=== PATIENT | female | born 1990 | race African-American/Black ===

== ENCOUNTER 2018-04-02 03:21 | Emergency (ER) | payer MEDICAID ==
[~2018-04-02] VITALS: Ht 165.1 cm; Wt 59.0 kg
[2018-04-02 03:25] VITALS: BP 130/92
[2018-04-02] MEDS ORDERED: IBUPROFEN600 MG ORAL (03:38)
--- NOTE | 2018-04-02 03:38 | Emergency Room Report ---
History of Present Illness General Chief Complaint: General Complaint Source: Patient Present Illness HPI Is a 27-year-old female with no past medical history. She called [address] with chief complaint of bilateral ankle and foot pain. Onset for last several days. She says she been walking a lot. No trauma. No fever chills. Was told that her swelling is because his sodium is high. Denies any other complaint. Pain is 7 out of 10. No radiation. Allergies: Coded Allergies: CEPHALEXIN (Verified Allergy, Severe, 01/07/15) Patient History Past Medical History: see triage record, old chart reviewed Past Surgical History: none Pertinent Family History: none Social History: Denies: smoking Now: No Immunizations: other Reviewed Nursing Documentation: PMH: Agreed; PSxH: Agreed Nursing Documentation-PMH Past Medical History: No Stated History Review of Systems Eye: Denies: eye pain, blurred vision ENT: Denies: ear pain, nose congestion, throat swelling Respiratory: Denies: cough, shortness of breath Cardiovascular: Denies: chest pain, palpitations Gastrointestinal: Denies: abdominal pain, diarrhea, nausea, vomiting Musculoskeletal: Reports: joint pain; Denies: back pain Skin: Denies: rash Neurological: Denies: headache, numbness Endocrine: Denies: increased thirst, increased urine Hematologic/Lymphatic: Denies: easy bruising All Other Systems: negative except mentioned in HPI Physical Exam Vital Signs Date Time Temp Pulse Resp B/P (MAP) Pulse Ox O2 Delivery O2 Flow Rate FiO2 04/02/18 03:17 98.2 87 16 130/92 98 Room Air 98.2 vitals angelo Sp02 EP Interpretation: reviewed, normal General Appearance: well appearing, no apparent distress, alert Head: normocephalic, atraumatic Eyes: bilateral eye PERRL, bilateral eye EOMI ENT: hearing grossly normal, normal pharynx Neck: full range of motion, supple, no meningismus Respiratory: chest non-tender, lungs clear, normal breath sounds Cardiovascular #1: regular rate, rhythm, no murmur Gastrointestinal: normal bowel sounds, non tender, no mass, no organomegaly, no bruit, non-distended Musculoskeletal: back normal, gait/station normal, normal range of motion, other - This trace edema to the lateral aspect of both ankle. No pitting edema. Pulses normal. Minimal pain. Neurologic: alert, oriented x3 Psychiatric: mood/affect normal Skin: warm/dry Medical Decision Making Diagnostic Impression: Primary Impression: Bilateral ankle pain Qualified Codes: M25.571 - Pain in right ankle and joints of right foot; M25.572 - Pain in left ankle and joints of left foot ER Course Patient with bilateral ankle pain. I suspect this is secondary to being on her feet. No evidence of DVT or trauma. No evidence of septic joint. She is walking without any difficulty. I see no need for x-rays or ultrasound. Last Vital Signs Date Time Temp Pulse Resp B/P (MAP) Pulse Ox O2 Delivery O2 Flow Rate FiO2 04/02/18 03:25 98.2 16 130/92 98 Room Air 98.2 04/02/18 03:17 87 Status: unchanged Disposition: HOME, SELF-CARE Condition: Stable Scripts Ibuprofen* (MOTRIN*) 600 Mg Tablet 600 MG ORAL THREE TIMES A DAY, #30 TAB 0 Refills Prov: CONCHIS ABDI M.D. 04/02/18 Additional Instructions: Rest. Elevate your feet. Return if symptom worsen. Follow-up with your doctor in 7 days. CONCHIS ABDI M.D. Apr 02, 2018 03:38
[2018-04-02 03:54] VITALS: BP 0/0
== END 2018-04-02 03:54 | disposition home or self-care (01) ==
LOC: EDBD 03:21 → EMR 03:38
DX: M25.572 Pain in left ankle and joints of left foot (principal); M25.571 Pain in right ankle and joints of right foot
CPT/HCPCS: 99284

== ENCOUNTER 2018-04-12 01:35 | Emergency (ER) | payer MEDICAID ==
[~2018-04-12] VITALS: Ht 165.1 cm; Wt 63.5 kg
[~2018-04-12 01:35] MED LIST: IBUPROFEN600 MG ORAL
[2018-04-12] MEDS ORDERED: NKM (01:42)
[2018-04-12 01:43] VITALS: BP 130/88
[2018-04-12] MEDS ORDERED: IBUPROFEN600 MG ORAL (01:47)
--- NOTE | 2018-04-12 01:47 | Emergency Room Report ---
History of Present Illness General Chief Complaint: Neck Pain Source: Patient Present Illness HPI Is a 27-year-old female with no past mental history. She presents with chief complaint of neck pain. She said his been ongoing for weeks. I saw her about 10 days ago when she did not mention this. She has discharge paperwork's in her bag which she would not let me see. Pain is 8 out of 10. Worse with movement. Denies any trauma. No fever chills but no nausea no vomiting. Nothing made it better. Allergies: Coded Allergies: CEPHALEXIN (Verified Allergy, Severe, 01/07/15) Patient History Past Medical History: see triage record, old chart reviewed Past Surgical History: none Pertinent Family History: none Social History: Denies: smoking Last Menstrual Period: Mar Now: No Immunizations: other Reviewed Nursing Documentation: PMH: Agreed; PSxH: Agreed Nursing Documentation-PMH Past Medical History: No Stated History Review of Systems Eye: Denies: eye pain, blurred vision ENT: Denies: ear pain, nose congestion, throat swelling Respiratory: Denies: cough, shortness of breath Cardiovascular: Denies: chest pain, palpitations Gastrointestinal: Denies: abdominal pain, diarrhea, nausea, vomiting Musculoskeletal: Denies: back pain, joint pain Skin: Denies: rash Neurological: Denies: headache, numbness Endocrine: Denies: increased thirst, increased urine Hematologic/Lymphatic: Denies: easy bruising All Other Systems: negative except mentioned in HPI Physical Exam Vital Signs Date Time Temp Pulse Resp B/P (MAP) Pulse Ox O2 Delivery O2 Flow Rate FiO2 04/12/18 01:39 98.4 88 16 130/88 99 Room Air 98.4 vitals normal Sp02 EP Interpretation: reviewed, normal General Appearance: well appearing, no apparent distress, alert Head: normocephalic, atraumatic Eyes: bilateral eye PERRL, bilateral eye EOMI ENT: hearing grossly normal, normal pharynx Neck: full range of motion, supple, no meningismus Respiratory: chest non-tender, lungs clear, normal breath sounds Cardiovascular #1: regular rate, rhythm, no murmur Gastrointestinal: normal bowel sounds, non tender, no mass, no organomegaly, no bruit, non-distended Musculoskeletal: back normal, gait/station normal, normal range of motion Psychiatric: mood/affect normal Skin: warm/dry Medical Decision Making Diagnostic Impression: Primary Impression: Neck pain ER Course Patient presents with neck pain. She is moving her neck without any difficulty. There is no evidence of any trauma. No evidence of cauda equina syndrome, spinal epidural abscess or neoplastic process. Last Vital Signs Date Time Temp Pulse Resp B/P (MAP) Pulse Ox O2 Delivery O2 Flow Rate FiO2 04/12/18 01:39 98.4 88 16 130/88 99 Room Air 98.4 Status: unchanged Disposition: HOME, SELF-CARE Condition: Stable Scripts Ibuprofen* (MOTRIN*) 600 Mg Tablet 600 MG ORAL THREE TIMES A DAY, #30 TAB 0 Refills Prov: CONCHIS ABDI M.D. 04/12/18 Additional Instructions: Follow-up with your doctor in 7 days. Return if symptom worsen. CONCHIS ABDI M.D. Apr 12, 2018 01:47
== END 2018-04-12 02:00 | disposition home or self-care (01) ==
LOC: EDUNIT# 01:35 → EDBD 01:35 → EMR 01:50
DX: M54.2 Cervicalgia (principal); Z88.1 Allergy status to other antibiotic agents
CPT/HCPCS: 99282